=== PATIENT | female | born 1950 | race Caucasian/White ===

== ENCOUNTER 2016-12-28 13:14 | Emergency (ER) | payer MEDICAID, OTHER ==
[~2016-12-28] VITALS: Ht 149.9 cm; Wt 57.5 kg
[2016-12-28 13:27] VITALS: Ht 149.9 cm; Wt 57.5 kg
[2016-12-28] MEDS ORDERED: KETOROLAC 30 MG INJ IM STA (13:56)
--- NOTE | 2016-12-28 14:14 | ERD ---
ER Documentation Chief Complaint Date/Time DATE: 12/28/16 TIME: 14:12 Chief Complaint tripped on stairs on tuesday - pain along right side of body HPI This 66-year-old female who presents the emergency department today complaining of right arm pain, hip pain after falling down some stairs a couple of days ago. States she took Tylenol for pain yesterday with no improvement. Denies any previous trauma, fevers or chills ROS All systems reviewed and are negative except as per history of present illness. Medications Home Meds Active Scripts Naproxen* (Naprosyn*) 500 Mg Tablet, 500 MG PO BID Y for PAIN AND/OR INFLAMMATION, #30 TAB Prov:ASHKAN HERNÁNDEZ PA-C 12/28/16 Tramadol HCl (Tramadol HCl) 50 Mg Tablet, 50 MG PO Q4 Y for PAIN, #20 TAB Prov:ASHKAN HERNÁNDEZ PA-C 12/28/16 Allergies Allergies: Uncoded Allergies: PENICILLIN (Allergy, Intermediate, 12/28/16) SULFA (Allergy, Intermediate, 12/28/16) PMhx/Soc Medical and Surgical Hx: pt denies Medical Hx, pt denies Surgical Hx Hx Alcohol Use: No Hx Substance Use: No Hx Tobacco Use: No Smoking Status: Never smoker Physical Exam Vitals Vital Signs Date Time Temp Pulse Resp B/P Pulse Ox O2 Delivery O2 Flow Rate FiO2 12/28/16 13:27 98.1 50 16 129/56 100 Physical Exam Const: No acute distress Head: Atraumatic Eyes: Normal Conjunctiva ENT: Normal External Ears, Nose and Mouth. Neck: Full range of motion..~ No meningismus. Resp: Clear to auscultation bilaterally Cardio: Regular rate and rhythm, no murmurs Abd: Soft, non tender, non distended. Normal bowel sounds Skin: Ecchymosis anterior aspect bilateral knees. Ecchymosis palmar aspect right hand Back: No midline or flank tenderness mild tenderness palpation lateral aspects of both hips. Patient ambulating normally. No tenderness with compression. Ext: Right arm with no obvious deformity. Mild effusion over dorsal aspect of right hand. Ecchymosis over palmar aspect of right hand. Full active range of motion with pain. Pulses 2+. Distal neurovascularly intact Neur: Awake and alert Psych: Normal Mood and Affect Results 24 hrs Current Medications Medications (Trade) Dose Ordered Sig/Skyler Route PRN Reason Start Time Stop Time Status Last Admin Dose Admin Ketorolac Tromethamine (Toradol) 30 mg ONCE STAT IM 12/28/16 13:56 12/28/16 14:00 DC 12/28/16 14:05 DIAGNOSTIC IMAGING REPORT Patient: NABIL BECKER : 1950 Age: 66 Sex: F MR #: [id number] DOS: 12/28/16 0000 Ordering MD: ASHKAN HERNÁNDEZ PA-C Location: [facility] Room/Bed: PROCEDURE: Right hand series CLINICAL INDICATION: Right hand pain after trauma TECHNIQUE: 3 views of the right hand were obtained. COMPARISON: No prior studies are available for comparison. FINDINGS: Study is mildly limited as the there is no lateral view of the hand.. Mineralization and alignment are grossly intact. There is an age indeterminate distal fifth metacarpal fracture, likely chronic. There is no other evidence of fracture or dislocation. There are moderate degenerative changes of the first carpal metacarpal joint and mild degenerative changes of some of the distal interphalangeal joint. The soft tissues are within normal limits. IMPRESSION: 1. Age indeterminate distal fifth metacarpal fracture which may be chronic. Recommend correlation with physical exam. 2. Degenerative changes of the right hand. RPTAT: KK .Leon Amaya MD, MD Date Time Electronically viewed and signed by .Leon Amaya MD, MD on 2016 15:28 .B/ CC: ASHKAN HERNÁNDEZ PA-C DIAGNOSTIC IMAGING REPORT Patient: NABIL BECKER : 1950 Age: 66 Sex: F MR #: [id number] DOS: 12/28/16 0000 Ordering MD: ASHKAN HERNÁNDEZ PA-C Location: [facility] Room/Bed: PROCEDURE: Forearm radiograph series. CLINICAL INDICATION: Right forearm pain after trauma TECHNIQUE: AP and lateral views of the right forearm were obtained. COMPARISON: No prior studies are available for comparison. FINDINGS: There is normal mineralization and alignment of the bones of the right forearm. There is no evidence of acute fracture or dislocation. Suboptimally visualized joints appear within normal limits. The soft tissues are unremarkable. IMPRESSION: 1. Unremarkable right forearm x-ray series. RPTAT: KK .Leon Amaya MD, MD Date Time Electronically viewed and signed by .Leon Amaya MD, MD on 2016 15:29 .B/ CC: ASHKAN HERNÁNDEZ PA-C DIAGNOSTIC IMAGING REPORT Patient: NABIL BECKER : 1950 Age: 66 Sex: F MR #: [id number] DOS: 12/28/16 0000 Ordering MD: ASHKAN HERNÁNDEZ PA-C Location: [facility] Room/Bed: PROCEDURE: XR Pelvis. CLINICAL INDICATION: Pelvic pain after trauma TECHNIQUE: Single AP view of the pelvis. COMPARISON: No prior studies are available for comparison. FINDINGS: Study is slightly limited as the patient is slightly rotated which limits evaluation of the pubic rami. There is grossly normal mineralization and alignment. The femoral acetabular joints appear within normal limits. The sacroiliac joints are grossly unremarkable. The sacrum itself is suboptimally visualized due to overlying bowel gas. The soft tissues are within normal limits. IMPRESSION: 1. Limited evaluation of the pubic rami without definitive evidence of acute fracture or dislocation. RPTAT: KK .Leon Amaya MD, MD Date Time Electronically viewed and signed by .Leon Amaya MD, MD on 2016 15:30 .B/ CC: ASHKAN HERNÁNDEZ PA-C DIAGNOSTIC IMAGING REPORT Patient: NABIL BECKER : 1950 Age: 66 Sex: F MR #: [id number] DOS: 12/28/16 0000 Ordering MD: ASHKAN HERNÁNDZE PA-C Location: [facility] Room/Bed: PROCEDURE: XR Shoulder. CLINICAL INDICATION: Right shoulder pain after trauma TECHNIQUE: 2 views of the right shoulder are available for review. COMPARISON: None available FINDINGS: There is normal mineralization and alignment of the bones of the right shoulder. No acute fracture or dislocation is identified. The glenohumeral joint is within normal limits. The acromioclavicular joint is intact. The visualized portions of the right chest wall are grossly unremarkable. The soft tissues are within normal limits. IMPRESSION: 1. Unremarkable right shoulder series. RPTAT: KK .Leon Amaya MD, MD Date Time Electronically viewed and signed by .Leon Amaya MD, on 2016 15:30 .B/ CC: ASHKAN HERNÁNDEZ PA-C DIAGNOSTIC IMAGING REPORT Patient: NABIL BECEKR : 1950 Age: 66 Sex: F MR #: [id number] DOS: 12/28/16 0000 Ordering MD: ASHKAN HERNÁNDEZ PA-C Location: [facility] Room/Bed: PROCEDURE: XR Humerus. CLINICAL INDICATION: Right upper arm pain after trauma TECHNIQUE: 2 views of the right humerus were obtained. COMPARISON: No prior studies are available for comparison. FINDINGS: There is normal mineralization and alignment of the bones of the right humerus. There is no evidence of acute fracture or dislocation. The partially visualized joints appear grossly unremarkable. The soft tissues are within normal limits. IMPRESSION: 1. Unremarkable right humerus series. RPTAT: KK .Leon Amaya MD, MD Date Time Electronically viewed and signed by .Leon Amaya MD, MD on 2016 15:30 .B/ CC: ASHKAN HERNÁNDEZ PA-C Procedures/MDM This a 66-year-old female presents emergency department today complaining of multiple areas of pain after falling on some stairs 3 days ago. Patient did have some bruising and swelling over her right hand and given patient's age I did obtain images. Per the radiology report images of the right shoulder is unremarkable Images of the right humerus is unremarkable Images of the right forearm is unremarkable Images of the right hand show an age-indeterminate distal fifth metacarpal fracture which may be chronic. There is no other evidence of fracture dislocation. There are moderate degenerative changes of the first medical carpal joint and mild degenerative changes of some of the distal interphalangeal joint. Soft tissues are within normal limits. I have lower suspicion that this is a chronic injury as patient has bruising and swelling that is acute. Images of the pelvis show limited evaluation of the pubic rami without definitive evidence of acute fracture dislocation. Femoral acetabular joints appear within normal limits. SI joints are unremarkable. The sacrum itself is suboptimally visualized due to overlying bowel gas. Soft tissues are within normal limits. I do have lower suspicion that the patient has a pelvic fracture as she is walking in no acute distress. Patient was given Toradol here in the emergency department. She will be given a prescription for short course of tramadol, Naprosyn for home. Patient did indicate that she has an appointment with her primary care doctor tomorrow. I explained her that she would possibly need follow-up with orthopedic pendulous. Patient understood At this time the patient is stable for discharge and outpatient management. Patient should follow up with their PCP in the next 1-2 days. They may return to the emergency department sooner for any persistent or worsening of symptoms. Patient understood and agreed with the plan. Departure Diagnosis: Primary Impression: Fall Encounter type: initial encounter Qualified Code: W19.XXXA - Fall, initial encounter Additional Impression: Hand fracture, right Encounter type: initial encounter Fracture type: closed Qualified Code: S62.91XA - Hand fracture, right, closed, initial encounter Condition: ASHKAN Amezquita PA-C Dec 28, 2016 14:14
--- NOTE | 2016-12-28 15:28 | RADRPT ---
PROCEDURE: Right hand series CLINICAL INDICATION: Right hand pain after trauma TECHNIQUE: 3 views of the right hand were obtained. COMPARISON: No prior studies are available for comparison. FINDINGS: Study is mildly limited as the there is no lateral view of the hand.. Mineralization and alignment are grossly intact. There is an age indeterminate distal fifth metacarpal fracture, likely chronic. There is no other evidence of fracture or dislocation. There are moderate degenerative changes of the first carpal metacarpal joint and mild degenerative changes of some of the distal interphalange al joint. The soft tissues are within normal limits. IMPRESSION: 1. Age indeterminate distal fifth metacarpal fracture which may be chronic. Recommend correlation w ith physical exam. 2. Degenerative changes of the right hand. RPTAT: KK .Leon Amaya MD, Date Time Electronically viewed and signed by .Leon Amaya MD, MD on 12/28/2016 15:28 .B/
--- NOTE | 2016-12-28 15:29 | RADRPT ---
PROCEDURE: Forearm radiograph series. CLINICAL INDICATION: Right forearm pain after trauma TECHNIQUE: AP and lateral views of the right forearm were obtained. COMPARISON: No prior studies are available for comparison. FINDINGS: There is normal mineralization and alignment of the bones of the right forearm. There is no evidenc e of acute fracture or dislocation. Suboptimally visualized joints appear within normal limits. Th e soft tissues are unremarkable. IMPRESSION: 1. Unremarkable right forearm x-ray series. RPTAT: KK .Leon Amaya MD, MD Date Time Electronically viewed and signed by .Leon Amaya MD, on 12/28/2016 15:29 .B/
--- NOTE | 2016-12-28 15:30 | RADRPT ---
PROCEDURE: XR Pelvis. CLINICAL INDICATION: Pelvic pain after trauma TECHNIQUE: Single AP view of the pelvis. COMPARISON: No prior studies are available for comparison. FINDINGS: Study is slightly limited as the patient is slightly rotated which limits evaluation of the pubic ra mi. There is grossly normal mineralization and alignment. The femoral acetabular joints appear wit hin normal limits. The sacroiliac joints are grossly unremarkable. The sacrum itself is suboptimal ly visualized due to overlying bowel gas. The soft tissues are within normal limits. IMPRESSION: 1. Limited evaluation of the pubic rami without definitive evidence of acute fracture or dislocatio n. RPTAT: KK .Leon Amaya MD, Date Time Electronically viewed and signed by .Leon Amaya MD, MD on 12/28/2016 15:30 .B/
--- NOTE | 2016-12-28 15:30 | RADRPT ---
PROCEDURE: XR Shoulder. CLINICAL INDICATION: Right shoulder pain after trauma TECHNIQUE: 2 views of the right shoulder are available for review. COMPARISON: None available FINDINGS: There is normal mineralization and alignment of the bones of the right shoulder. No acute fracture or dislocation is identified. The glenohumeral joint is within normal limits. The acromioclavicular joint is intact. The visualized portions of the right chest wall are grossly unremarkable. The sof t tissues are within normal limits. IMPRESSION: 1. Unremarkable right shoulder series. RPTAT: KK .Leon Amaya MD, Date Time Electronically viewed and signed by .Leon Amaya MD, on 12/28/2016 15:30 .B/
--- NOTE | 2016-12-28 15:31 | RADRPT ---
PROCEDURE: XR Humerus. CLINICAL INDICATION: Right upper arm pain after trauma TECHNIQUE: 2 views of the right humerus were obtained. COMPARISON: No prior studies are available for comparison. FINDINGS: There is normal mineralization and alignment of the bones of the right humerus. There is no evidenc e of acute fracture or dislocation. The partially visualized joints appear grossly unremarkable. T he soft tissues are within normal limits. IMPRESSION: 1. Unremarkable right humerus series. RPTAT: KK .Leon Amaya MD, Date Time Electronically viewed and signed by .Leon Amaya MD, on 12/28/2016 15:30 .B/
[2016-12-28] MEDS ORDERED: NAPR-260 PO (15:37)
[2016-12-28] MEDS ORDERED: TRAM50TA2 PO (15:37)
== END 2016-12-28 16:02 | disposition home or self-care (01) ==
LOC: FTE 13:14
DX: S62.316A Displaced fracture of base of fifth metacarpal bone, right hand, initial encounter for closed fracture (principal); W10.9XXA Fall (on) (from) unspecified stairs and steps, initial encounter; Y92.9 Unspecified place or not applicable
CPT/HCPCS: 72170; 96372; J1885

== ENCOUNTER 2017-05-09 13:39 | Observation (INO) | payer OTHER ==
[~2017-05-09] VITALS: Ht 152.4 cm; Wt 54.0 kg
[~2017-05-09 13:39] MED LIST: NAPR-260 PO; TRAM50TA2 PO
[2017-05-09] MEDS ORDERED: NITROGLYCERIN 2% 1 GM OINT PKT TD STA (15:52)
[2017-05-09] MEDS ORDERED: ASPIRIN 325 MG TAB PO STA (15:52)
--- NOTE | 2017-05-09 15:58 | ERD ---
ER Documentation Chief Complaint Chief Complaint HIGH BLOOD PRESSURE X 1 WEEK.CP TODAY NON RADIATING HPI This is a 66-year-old female. A geospatial image analyst was used. The patient describes chest pain. She states a history of hypertension hyperlipidemia. She states for 1 week she has been having chest pain and chest pressure with uncontrolled blood pressure. She has been compliant with her medications. She is describing any chest pain as pressure-like with associated nausea and diaphoresis. She states that walking around makes it actually better and helps her stop thinking about it. She states that when she is sitting still she starts to get anxious. She does note increased anxiety. She has never had a stress test before. She denies any headache or vision changes. She took an extra dose of her blood pressure medication today before arrival. She is currently having 4-10 chest pain. ROS All systems reviewed and are negative except as per history of present illness. Medications Home Meds Reported Medications Acetaminophen* (Tylenol*) 500 Mg Tab, 1000 MG PO Q6H Y for PAIN AND OR ELEVATED TEMP, TAB 05/09/17 Atorvastatin* (Atorvastatin*) 40 Mg Tablet, 40 MG PO QHS, #30 TAB 05/09/17 Metoprolol Succinate* (Toprol XL*) 50 Mg Tab.er.24h, 50 MG PO DAILY, #30 TAB 05/09/17 Discontinued Scripts Naproxen* (Naprosyn*) 500 Mg Tablet, 500 MG PO BID Y for PAIN AND/OR INFLAMMATION, #30 TAB Prov:ASHKAN HERNÁNDEZ PA-C 12/28/16 Tramadol HCl (Tramadol HCl) 50 Mg Tablet, 50 MG PO Q4 Y for PAIN, #20 TAB Prov:ASHKAN HERNÁNDEZ PA-C 12/28/16 Allergies Allergies: Coded Allergies: Penicillins (Unverified Allergy, Unknown, 05/09/17) Sulfa (Sulfonamide Antibiotics) (Unverified Allergy, Unknown, 05/09/17) PMhx/Soc Hypertension and hyperlipidemia Hx Alcohol Use: No Hx Substance Use: No Hx Tobacco Use: No FmHx Family History: diabetes Physical Exam Vitals Vital Signs Date Time Temp Pulse Resp B/P Pulse Ox O2 Delivery O2 Flow Rate FiO2 05/09/17 15:45 98.5 68 18 130/62 100 Room Air 05/09/17 13:41 98.5 85 18 169/70 100 Physical Exam General: Well developed, well nourished, no acute distress Head: Normocephalic, atraumatic. Eyes: Pupils equally reactive, EOM intact ENT: Moist mucous membranes Neck: Supple, no lymphadenopathy Respiratory: Lungs clear bilaterally, no distress Cardiovascular: RRR, no murmurs, rubs, or gallops Abdominal: Soft, non-tender, non-distended, no peritoneal signs : Deferred MSK: No edema, no unilateral swelling, 5/5 strength Neurologic: Alert and oriented, moving all extremities, normal speech, no focal weakness, no cerebellar signs Skin: No rash Psych: Anxious Result Diagram: 05/09/17 1600 05/09/17 1600 Results 24 hrs Laboratory Tests Test 05/09/17 16:00 White Blood Count 6.810^3/ul Red Blood Count 4.5010^6/ul Hemoglobin 13.7g/dl Hematocrit 41.2% Mean Corpuscular Volume 91.6fl Mean Corpuscular Hemoglobin 30.4pg Mean Corpuscular Hemoglobin Concent 33.3g/dl Red Cell Distribution Width 15.4% Platelet Count 51453^3/UL Mean Platelet Volume 11.8fl Neutrophils % 50.7% Lymphocytes % 34.7% Monocytes % 7.0% Eosinophils % 7.3% Basophils % 0.3% Nucleated Red Blood Cells % 0.0/100WBC Neutrophils # 3.510^3/ul Lymphocytes # 2.410^3/ul Monocytes # 0.510^3/ul Eosinophils # 0.510^3/ul Basophils # 0.010^3/ul Nucleated Red Blood Cells # 0.010^3/ul Sodium Level 142mmol/L Potassium Level 4.2mmol/L Chloride Level 104mmol/L Carbon Dioxide Level 28mmol/L Anion Gap 14 Blood Urea Nitrogen 16mg/dl Creatinine 0.69mg/dl Glucose Level 117mg/dl Calcium Level 9.9mg/dl Troponin I < 0.012ng/ml Current Medications Medications (Trade) Dose Ordered Sig/Skyler Route PRN Reason Start Time Stop Time Status Last Admin Dose Admin Aspirin (Aspirin) 325 mg ONCE STAT PO 05/09/17 15:52 05/09/17 15:53 DC 05/09/17 16:27 Nitroglycerin (Nitroglycerin 2% Oint) 1 inch ONCE STAT TD 05/09/17 15:52 05/09/17 15:53 DC 05/09/17 16:27 Lorazepam (Ativan) 0.5 mg ONCE ONCE IV 05/09/17 16:00 05/09/17 16:01 DC 05/09/17 16:27 Procedures/MDM EKG, MONITORS, & DIAGNOSTIC IMAGING: EKG: I reviewed and interpreted a 12-lead EKG. Rhythm: Normal sinus rhythm Ectopy: None Intervals: No abnormalities ST segments: No elevations or depressions T waves: No contiguous inversions Repeat EKG: EKG: I reviewed and interpreted a 12-lead EKG. Rhythm: Normal sinus rhythm Ectopy: None Intervals: No abnormalities ST segments: No elevations or depressions T waves: No contiguous inversions Chest x-ray: I reviewed and interpreted a 1 view of the chest Mediastinum: No enlargement Cardiac silhouette: No cardiomegaly Airspace: Clear lung melendez bilaterally without evidence of pneumothorax Bones: No evidence of fracture LAB INTERPRETATION: Troponin MEDICAL DECISION MAKING: The patient's history, physical exam and clinical presentation is concerning for possible cardiogenic etiology and acute coronary syndrome. However, there is a strong element of anxiety with this patient and additionally she has improved symptoms with exertion. However, she is a 66-year-old with prior risk stratification. I believe a workup would be appropriate to rule out ACS. No headache or evidence of intracranial hemorrhage. Blood pressure well controlled. No indication for CT brain. Based on the patient's clinical exam and history and risk factors, I have a much lower clinical concern for pulmonary embolism, acute aortic dissection, pneumothorax, pneumonia, cardiac tamponade HEART Score: 3 MACE Rate: 1.7% Shared Decision Making: We had a conversation regarding risk stratification, MACE rate, and the risks, benefits, alternatives of disposition planning options. Disposition planning: Given that the patient has had no prior risk stratification I strongly recommend hospitalization. Patient agreeable. ER COURSE: Aspirin, nitroglycerin, Ativan provided. The patient is chest pain-free. It appears over the patient's course in the emergency department she reported to the nurse that she may be suicidal. She is describing increased depression and suicidal ideation with cutting herself. She also describes a plan to jump in front of traffic. A sitter was ordered for the patient. An alcohol and drug screen was ordered. The patient cannot be medically cleared given her chest pain. She will require admission, consider an inpatient psychiatric evaluation once cleared from a chest pain standpoint. I kept the patient and/or family informed of laboratory and diagnostic imaging results throughout the emergency room course. DISPOSITION PLAN: Telemetry admission for management of chest pain to rule out acute coronary syndrome, serial enzymes, risk stratification and consideration of provocative testing CONSULTATION: Accepting care team and consultations: I discussed the current laboratory data, diagnostic imaging and emergency care provided. Admitting team: Dr Henriquez Admitting team indication: Insurance directed Departure Diagnosis: Primary Impression: Chest pain Chest pain type: unspecified Qualified Code: R07.9 - Chest pain, unspecified type Additional Impressions: Anxiety reaction Suicidal ideation Condition: Stable OK TORRES MD May 09, 2017 15:58
[2017-05-09] MEDS ORDERED: LORAZEPAM 2 MG INJ IV ONE (16:00)
--- NOTE | 2017-05-09 16:21 | RADRPT ---
PROCEDURE: XR Chest. CLINICAL INDICATION: Chest pain. TECHNIQUE: Single frontal view. COMPARISON: None. FINDINGS: The lungs are clear. The heart size is normal. There is no pleural effusion. There is no pneumothorax. IMPRESSION: 1. Normal chest radiograph. RPTAT: QQ .Jesus Myers MD, Date Time Electronically viewed and signed by .Jesus Myers MD, on 05/09/2017 16:20 .R/
[2017-05-09] MEDS ORDERED: TYL500 PO (16:23)
[2017-05-09] MEDS ORDERED: ATOR40TA68 PO (16:23)
[2017-05-09] MEDS ORDERED: METO-319 PO (16:23)
[2017-05-09 16:30] LABS: BASOPHILS % 0.3 % (0.0-2.0); EOSINOPHILS # 0.5 10^3/ul (0.0-0.5); EOSINOPHILS % 7.3 % (0.0-7.0); HEMATOCRIT 41.2 % (37.0-47.0); HEMOGLOBIN 13.7 g/dl (12.0-16.0); LYMPHOCYTES # 2.4 10^3/ul (0.8-2.9); LYMPHOCYTES % 34.7 % (15.0-51.0); MEAN CORPUSCULAR HEMOGLOBIN 30.4 pg (29.0-33.0); MEAN CORPUSCULAR HGB CONC 33.3 g/dl (32.0-37.0); MEAN CORPUSCULAR VOLUME 91.6 fl (82.0-101.0); MEAN PLATELET VOLUME 11.8 fl (7.4-10.4); MONOCYTE # 0.5 10^3/ul (0.3-0.9); NEUTROPHIL # 3.5 10^3/ul (1.6-7.5); NEUTROPHILS % 50.7 % (39.0-77.0); PLATELET COUNT 158 10^3/UL (140-415); RED CELL DISTRIBUTION WIDTH 15.4 % (11.5-14.5); WHITE BLOOD COUNT 6.8 10^3/ul (4.8-10.8)
[2017-05-09 16:56] LABS: ANION GAP 14 (8-16); BLOOD UREA NITROGEN 16 mg/dl (7-20); CALCIUM 9.9 mg/dl (8.4-10.2); CARBON DIOXIDE 28 mmol/L (21-31); CHLORIDE 104 mmol/L (97-110); CREATININE 0.69 mg/dl (0.44-1.00); GLUCOSE 117 mg/dl (70-220); POTASSIUM 4.2 mmol/L (3.5-5.1); SODIUM 142 mmol/L (135-144)
[2017-05-09 17:11] LABS: TROPONIN-I < 0.012 ng/ml (0.00-0.12)
[2017-05-09] MEDS ORDERED: ACETAMINOPHEN 325 MG TAB PO PRN (17:30)
[2017-05-09] MEDS ORDERED: ONDANSETRON 4 MG INJ IV PRN (17:30)
[2017-05-09 17:59] VITALS: TEMP 98.2
[2017-05-09] MEDS ORDERED: morphine 4 MG/ML VIAL IV STA (18:12)
[2017-05-09 20:10] VITALS: Ht 152.4 cm; Wt 54.0 kg
[2017-05-09 20:28] VITALS: BP 167/72; RESP 16
[2017-05-09 20:36] VITALS: PULSE 66
[2017-05-09 20:50] LABS: BARBITURATES Negative (NEGATIVE); BENZODIAZEPINES Negative (NEGATIVE); CANNABINOIDS Negative (NEGATIVE); COCAINE Negative (NEGATIVE); OPIATES Positive (NEGATIVE)
[2017-05-09] MEDS ORDERED: QUETIAPINE 25 MG TAB PO SCH (21:00)
[2017-05-09] MEDS ORDERED: DIPHENHYDRAMINE 25 MG CAP PO PRN (21:30)
[2017-05-09] MEDS ORDERED: morphine 4 MG/ML VIAL IV PRN (21:30)
[2017-05-09 22:35] LABS: CREATINE KINASE 53 IU/L (23-200)
[2017-05-09 22:46] LABS: CK-MB 0.35 ng/ml (0.0-2.4)
[2017-05-09 22:47] LABS: TROPONIN-I < 0.012 ng/ml (0.00-0.12)
[2017-05-10] VITALS (11 sets, daily range): BP systolic 114–151; BP diastolic 58–79; PULSE 48–69; RESP 18–19
[2017-05-10] MEDS ORDERED: hydrALAzine 20 MG INJ IV PRN (00:30)
[2017-05-10] MEDS ORDERED: NITROGLYCERIN (SL) 0.4 MG TAB SL PRN (00:30)
[2017-05-10] MEDS ORDERED: morphine 2 MG INJ IV PRN ×3 (00:30→16:30)
[2017-05-10] MEDS ORDERED: ONDANSETRON 4 MG INJ IV PRN (00:30)
[2017-05-10] MEDS ORDERED: LORAZEPAM 0.5 MG TAB PO PRN (00:30)
[2017-05-10] MEDS ORDERED: NACL 0.9% 3 ML SYG IV SCH (00:30)
[2017-05-10] MEDS ORDERED: ALBUTEROL/IPRATROPIUM (NEB) 3 ML AMP HHN PRN (00:30)
[2017-05-10 04:07] LABS: BASOPHILS % 0.4 % (0.0-2.0); CREATINE KINASE 40 IU/L (23-200); EOSINOPHILS # 0.4 10^3/ul (0.0-0.5); EOSINOPHILS % 7.4 % (0.0-7.0); HEMATOCRIT 35.9 % (37.0-47.0); HEMOGLOBIN 12.5 g/dl (12.0-16.0); LYMPHOCYTES # 1.6 10^3/ul (0.8-2.9); LYMPHOCYTES % 29.8 % (15.0-51.0); MEAN CORPUSCULAR HEMOGLOBIN 31.6 pg (29.0-33.0); MEAN CORPUSCULAR HGB CONC 34.8 g/dl (32.0-37.0); MEAN CORPUSCULAR VOLUME 90.9 fl (82.0-101.0); MONOCYTE # 0.4 10^3/ul (0.3-0.9); MONOCYTES % 6.4 % (0.0-11.0); NEUTROPHIL # 3.1 10^3/ul (1.6-7.5); NEUTROPHILS % 55.8 % (39.0-77.0); PLATELET COUNT 120 10^3/UL (140-415); RED BLOOD COUNT 3.95 10^6/ul (4.20-5.40); RED CELL DISTRIBUTION WIDTH 15.4 % (11.5-14.5); WHITE BLOOD COUNT 5.5 10^3/ul (4.8-10.8)
[2017-05-10 04:10] LABS: ALBUMIN 3.6 g/dl (3.3-4.9); ALBUMIN/GLOBULIN RATIO 1.24; BILIRUBIN,INDIRECT 0.5 mg/dl (0-1.1); BILIRUBIN,TOTAL 0.5 mg/dl (0.2-1.3); CALCIUM 9.2 mg/dl (8.4-10.2); CREATININE 0.64 mg/dl (0.44-1.00); POTASSIUM 3.9 mmol/L (3.5-5.1); TOTAL PROTEIN 6.5 g/dl (6.1-8.1)
[2017-05-10 04:20] LABS: CK-MB 0.37 ng/ml (0.0-2.4)
[2017-05-10 04:28] LABS: TROPONIN-I < 0.012 ng/ml (0.00-0.12)
[2017-05-10] MEDS: ACETAMINOPHEN 325 MG TAB PO PRN ×2 (08:33→15:29)
[2017-05-10] MEDS ORDERED: ENOXAPARIN 40 MG/0.4 ML SYG SC SCH (09:00)
[2017-05-10] MEDS ORDERED: ASPIRIN 81 MG TAB PO SCH (09:00)
[2017-05-10] MEDS ORDERED: METOPROLOL (XL) 50 MG TAB PO SCH (09:00)
--- NOTE | 2017-05-10 10:13 | HP ---
Date/Time of Note Date/Time of Note DATE: 05/10/17 TIME: 10:07 Assessment/Plan Lines/Catheters IV Catheter Type (from Nrs): Saline Lock Urinary Cath still in place: No Assessment/Plan Assessment/Plan 1. Suicidal ideation -1:1 sitter -Tele-psychiatry evaluation -will start Seroquel 2. Chest pain, likely noncardiac secondary to anxiety/stress -Will however need to rule out ACS and as such continue telemetry monitoring, trend troponin -Supplemental oxygen, aspirin, beta-brenda -Check A1c, fasting lipid and TSH in a.m. -2D echo -Cardiology consult as needed 3. History of hypertension Continue antihypertensives adjustment as needed 4. Elevated transaminases -Right upper quadrant ultrasound -Check hepatitis panel -Hold outpatient statin HPI/ROS Admit Date/Time Admit Date/Time May 09, 2017 at 17:25 Hx of Present Illness This is a 66-year-old female with a history of hypertension, dyslipidemia, anxiety/depression and remote history of suicide attempt who presented to the ER complaining of chest pain. Pain is diffuse but mainly localized in the center with no radiation. She reported occasional associated shortness of breath. Denied nausea/vomiting but reported occasional diaphoresis. Denied a history of coronary artery disease. While patient was in the ER, she expressed thoughts of suicide by slashing her wrists or jumping in front of a bus. There is a remote history of suicide attempts by cutting her wrists. Patient expressed feeling lonely. PMH/Family/Social Social History Smoking Status: Never smoker Exam/Review of Systems Vital Signs Vitals Vital Signs Date Time Temp Pulse Resp B/P Pulse Ox O2 Delivery O2 Flow Rate FiO2 05/10/17 08:00 69 05/10/17 07:42 98.1 19 151/79 98 05/09/17 19:59 Room Air Intake and Output 05/09/17 05/09/17 05/10/17 14:59 22:59 06:59 Intake Total 200 ml Balance 200 ml Labs Result Diagram: 05/10/17 0333 05/10/17 0333 Medications Medications Current Medications Diphenhydramine HCl (Benadryl) 25 mg Q6H PRN PO ITCHING Last administered on t 23:10; Admin Dose 25 MG; Start 05/09/17 at 21:30 Morphine Sulfate (morphine) 4 mg Q4H PRN IV PAIN; Start 05/09/17 at 21:30 Quetiapine Fumarate (Seroquel) 25 mg HS PO Last administered on 05/09/17 23:10 ; Admin Dose 25 MG; Start 05/09/17 at 21:00 Lorazepam (Ativan) 0.5 mg Q8H PRN PO ANXIETY; Start 05/10/17 at 00:30 Ondansetron HCl (Zofran Inj) 4 mg Q6H PRN IV NAUSEA AND/OR VOMITING; Start 05/10/17 at 00:30 Aspirin (Aspirin) 81 mg DAILY PO Last administered on 05/10/17 08:33; Admin Dose 81 MG; Start 05/10/17 at 09:00 Nitroglycerin (Nitroglycerin (Sl Tab) 0.4 Mg) 1 tab Q5M PRN SL CHEST PAIN; Start 05/10/17 at 00:30 Acetaminophen (Tylenol Tab) 650 mg Q6H PRN PO PAIN LEVEL 1-3 OR FEVER Last administered on 05/10/17 08:33; Admin Dose 650 MG; Start 05/10/17 at 00:30 Morphine Sulfate (morphine) 2 mg Q4H PRN IV PAIN LEVEL 7-10; Start 05/10/17 at 00:30 Enoxaparin Sodium (Lovenox) 40 mg DAILY SC Last administered on 05/10/17 08:42 ; Admin Dose 40 MG; Start 05/10/17 at 09:00 Atorvastatin Calcium (Lipitor) 40 mg QHS PO ; Start 05/10/17 at 21:00 Metoprolol Succinate (Toprol Xl) 50 mg DAILY PO Last administered on 05/10/17 08:33; Admin Dose 50 MG; Start 05/10/17 at 09:00 Hydralazine HCl (Apresoline) 10 mg Q4H PRN IV SBP > 160; Start 05/10/17 at 00: 30 TOBI SMITH MD May 10, 2017 10:13
[2017-05-10] MEDS ORDERED: FAMOTIDINE 20 MG TAB PO SCH (12:00)
--- NOTE | 2017-05-10 15:00 | RADRPT ---
PROCEDURE: US Abdomen (right upper quadrant). CLINICAL INDICATION: Elevated liver function tests. TECHNIQUE: Multiple real-time longitudinal and transverse images of the right upper quadrant of th e abdomen were acquired utilizing a curved array transducer. Images were reviewed on a high-resoluti on PACS workstation. COMPARISON: None FINDINGS: The liver is normal in size and normal in echogenicity. There is no focal hepatic lesion. Color Doppler and pulsed Doppler sonography demonstrate normal a ntegrade flow in the portal vein. The gallbladder is normal with no stones or wall thickening. There is no pericholecystic fluid [place] ection. The bile ducts are normal with the common bile duct measuring 4.2 mm in diameter. The visualized portions of the pancreas are unremarkable with obscuration of the tail of the pancrea s. No free fluid is present. The right kidney measures 10.8 cm. There is normal echogenicity of the right kidney. There is no perinephric fluid collection. No hydronephrosis, mass, or calculus is seen. IMPRESSION: 1. Unremarkable right upper quadrant abdomen ultrasound. RPTAT: QQ .Jesus Myers MD, MD Date Time Electronically viewed and signed by .Jesus Myers MD, on 05/10/2017 15:00 .R/
--- NOTE | 2017-05-10 15:15 | RADRPT ---
Echocardiogram Report Patient Name: NABIL BECKER Gender: Female Date: 1950 Study Date: 10-May-2017 [employer] Agent: [facility] Location: 5548-A Ref. Physician: TOBI SMITH Quality: Adequate Procedures: Transthoracic echocardiogram with complete 2D, M-Mode, and doppler examination. Indications: Chest Pain. 2D/M Mode Doppler Measurement Value Normal Ranges Measurement Value Normal Ranges LVIDd 2D 3.9 3.5 - 5.6 cm AV Peak Terell 1.0 m/sec LVIDs 2D 2.5 2.1 - 4.1 cm AV Peak PG 4.0 mmHg LVPWd 2D 1.1 0.6 - 1.1 cm AI Peak PG 71.2 mmHg IVSd 2D 1.1 0.6 - 1.1 cm AI Peak Terell 4.2 m/sec AoR Diam 2D 2.4 2.0 - 3.7 cm AI PHT 743.1 msec EDV 2D 67.5 cm3 LVOT Peak Terell 1.0 m/sec ESV 2D 16.2 cm3 LVOT Peak PG 3.6 mmHg LA Dimen 2D 2.9 2.3 - 4.0 cm MV E Peak Terell 0.9 m/sec MV A Peak Terell 0.8 m/sec MV E/A 1.2 MV Decel Time 176 msec MV Decel [place] 5 MV E/A 1.2 TR Peak Terell 3.4 m/sec TR Peak PG 46.0 mmHg RVSP 49.0 mmHg Findings Left Ventricle: Normal left ventricular systolic function. Normal left ventricular cavity size. Left ventricular wall thickness upper limits of normal. Ejection fraction is visually estimated at 6065 %. Tissue Doppler/Mitral Doppler indices are within normal limits. Right Ventricle: Normal right ventricular size. Normal right ventricular systolic function. Left Atrium: The left atrium is normal in size. Right Atrium: The right atrium is normal in size. Mitral Valve: Mild mitral leaflet calcification. Mild mitral annular calcification. Mild mitral valve regurgitation. Aortic Valve: No significant aortic stenosis. Aortic cusps appear mildly calcified. Mild aortic valve regurgitation. Tricuspid Valve: Normal appearance of the tricuspid valve. Estimated peak PA systolic pressure 46 mmHg. There is mild to moderate tricuspid regurgitation. Pulmonic Valve: Pulmonic valve not well visualized. There is trace pulmonic regurgitation. Pericardium: Normal pericardium with no significant pericardial effusion. Aorta: Normal aortic root. IVC: Normal size and normal respiratory collapse consistent with normal right atrial pressure. Conclusions 1.The left ventricle is normal in size and systolic function. 2.Estimated left ventricular ejection fraction of 60-65%. 3.Estimated RVSP of 46 mmHg. Electronically Signed By: Norm Vargas 10-May-2017 15:14:33 -0800 Patient Name: NABIL BECKER Study Date: 10-May-[id number]
--- NOTE | 2017-05-10 15:48 | PSY ---
Date/Time of Note Date/Time of Note DATE: 05/10/17 TIME: 15:41 Psychiatric Subjective Eval Consent Pt consented to telemedicine: Yes Subjective Evaluation Patient location: inpatient Chief Complaint: HIGH BLOOD PRESSURE X 1 WEEK.CP TODAY NON RADIATING Reason for consult: depression History of present illness Translated by ney . 66/f, " I had a lot of head pain when I get pain I get confused. I fel like running so I get hit by something and , they are giving me some med in vein ( morphine as per Dr escalera) , which has controlled the pain , so I am fine, i do not feel confused. I do not want to kill myself" She has a h x of depression, took antidperessant in [place], not taking them since 11/20. She stated " They give me antidepressants" She is not telling me why she quit. She lives with her kids babs=corin and a son. Wants to go back. Does not have any suicidal thoughts now she stated. she wants to live Past psychiatric history depression denies any suicide attempt before, she stated whenever she gets pain she gets that way not otherwise. Nopsych admission. all hx from her. Family History denies spcyhs hx Medical history Problems Medical Problems: (1) Anxiety reaction Status: Acute (2) Chest pain Status: Acute (3) Fall Status: Acute (4) Hand fracture, right Status: Acute (5) Suicidal ideation Status: Acute Allergies: Coded Allergies: Penicillins (Unverified Allergy, Unknown, 05/09/17) Sulfa (Sulfonamide Antibiotics) (Unverified Allergy, Unknown, 05/09/17) Substance Abuse Substance use: other (she denies ) Social History Marital status: single (for 30 yrs ) Psychiatric Objective Eval Review of Systems: Review of Systems: Not Applicable Physical Examination: Physical Examination: Not Applicable Mental Status Examination: Appearance: Groomed Eye Contact: Good Psychomotor Activity: Normal Behavior: Cooperative Speech: Clear AFFECT: Appropriate Mood: Appropriate/Full Though Process: Linear Thought Content: Normal Suicidal: No Homicidal: No Orientation: x4 Cognition: Alert Insight: Intact Judgement: Intact Attention Span: Intact Laboratory Results Laboratory Tests Test 05/09/17 16:00 05/09/17 20:00 05/09/17 22:00 05/10/17 03:33 White Blood Count 6.810^3/ul 5.510^3/ul Red Blood Count 4.5010^6/ul 3.9510^6/ul Hemoglobin 13.7g/dl 12.5g/dl Hematocrit 41.2% 35.9% Mean Corpuscular Volume 91.6fl 90.9fl Mean Corpuscular Hemoglobin 30.4pg 31.6pg Mean Corpuscular Hemoglobin Concent 33.3g/dl 34.8g/dl Red Cell Distribution Width 15.4% 15.4% Platelet Count 99642^3/UL 15726^3/UL Mean Platelet Volume 11.8fl 12.0fl Neutrophils % 50.7% 55.8% Lymphocytes % 34.7% 29.8% Monocytes % 7.0% 6.4% Eosinophils % 7.3% 7.4% Basophils % 0.3% 0.4% Nucleated Red Blood Cells % 0.0/100WBC 0.0/100WBC Neutrophils # 3.510^3/ul 3.110^3/ul Lymphocytes # 2.410^3/ul 1.610^3/ul Monocytes # 0.510^3/ul 0.410^3/ul Eosinophils # 0.510^3/ul 0.410^3/ul Basophils # 0.010^3/ul 0.010^3/ul Nucleated Red Blood Cells # 0.010^3/ul 0.010^3/ul Sodium Level 142mmol/L 141mmol/L Potassium Level 4.2mmol/L 3.9mmol/L Chloride Level 104mmol/L 108mmol/L Carbon Dioxide Level 28mmol/L 26mmol/L Anion Gap 14 11 Blood Urea Nitrogen 16mg/dl 14mg/dl Creatinine 0.69mg/dl 0.64mg/dl Glucose Level 117mg/dl 99mg/dl Calcium Level 9.9mg/dl 9.2mg/dl Troponin I < 0.012ng/ml < 0.012ng/ml < 0.012ng/ml Ethyl Alcohol Level < 10.0mg/dl Urine Opiates Screen Positive Urine Barbiturates Negative Urine Amphetamines Screen Negative Urine Benzodiazepines Screen Negative Urine Cocaine Screen Negative Urine Cannabinoids Negative Creatine Kinase 53IU/L 40IU/L Creatine Kinase Index 0.7 0.9 Creatinine Kinase MB (Mass) 0.35ng/ml 0.37ng/ml Hemoglobin A1c 5.9% Magnesium Level 2.0mg/dl Total Bilirubin 0.5mg/dl Direct Bilirubin 0.00mg/dl Indirect Bilirubin 0.5mg/dl Aspartate Amino Transf (AST/SGOT) 138IU/L Alanine Aminotransferase (ALT/SGPT) 184IU/L Alkaline Phosphatase 389IU/L Total Protein 6.5g/dl Albumin 3.6g/dl Globulin 2.90g/dl Albumin/Globulin Ratio 1.24 Test 05/10/17 11:10 Hepatitis B Surface Antigen NEGATIVE Hepatitis B Surface Antibody NEGATIVE Hepatitis C Antibody NEGATIVE Assessment and Plan Assessment/Diagnosis [place] I: major depressive disorder r/o narc or pain killer abuse [place] II: deferred [place] III: none [place] IV: none [place] V: 70 Recommendation/Plan Medication Management Neurontin 300mg HS for pain and anxiety Paxil 20mg in PM Psychotherapy counseling Pt. Caregiver/Family Education d/c home with family since she has denied SI, HI see HPI Follow-up/Disposition f/u pcp, psychiatrist Avoid narcs, morphine similar for pain unless SC or angina. Use NSAIDS for musculoskeletal pain or beingn headaches 5150 Recommendation: Release Hold (id on hold you can release it discussed with Dr escalera) SUDHAKAR LANDRUM MD May 10, 2017 15:48
--- NOTE | 2017-05-10 16:05 | PDOCDIS ---
Discharge Instructions CONDITION Patient Condition: Stable HOME CARE INSTRUCTIONS: Diet Instructions: Low Fat /Cholesterol ACTIVITY: Activity Restrictions: Slowly Increase Activity FOLLOW UP/APPOINTMENTS Follow-up Plan Please take your medications as prescribed. Please follow-up with her regular doctor in the clinic in the next 1 week. MARA DÍAZ May 10, 2017 16:05
[2017-05-10] MEDS ORDERED: PARO20TA58 PO (16:07)
[2017-05-10] MEDS ORDERED: GABA300C PO (16:08)
--- NOTE | 2017-05-10 16:25 | DS ---
Date/Time of Note Date/Time of Note DATE: 05/10/17 TIME: 16:21 Discharge Summary Admission/Discharge Info Admit Date/Time May 09, 2017 at 17:25 Discharge Date/Time Discharge Diagnosis 1. Suicidal ideation - Resolved now -Tele-psychiatry evaluation 2. Chest pain, likely noncardiac secondary to anxiety/stress Ruled out for acute coronary syndrome 3. History of hypertension Continue antihypertensives adjustment as needed 4. Elevated transaminases -Right upper quadrant ultrasound Perform nondiagnostic Patient Condition: Stable Hospital Course 66-year-old female with a history of hypertension, dyslipidemia, anxiety/ depression and remote history of suicide attempt who presented to the ER complaining of chest pain. Pain is diffuse but mainly localized in the center with no radiation. She reported occasional associated shortness of breath. Denied nausea/vomiting but reported occasional diaphoresis. Denied a history of coronary artery disease. While patient was in the ER, she expressed thoughts of suicide by slashing her wrists or jumping in front of a bus. There is a remote history of suicide attempts by cutting her wrists. Patient expressed feeling lonely. Patient was admitted, ruled out for acute coronary syndrome. 2D echocardiogram showed the following results: Conclusions 1. The left ventricle is normal in size and systolic function. 2. Estimated left ventricular ejection fraction of 60-65%. 3. Estimated RVSP of 46 mmHg. Patient's chest pain symptoms improved, she was able to ambulate, tolerate a p.o. diet. She was evaluated by the telemetry psychiatrist who recommended Paxil and Neurontin medications to help treat her anxiety depression, but did not feel the patient was actively at risk for suicide or suicide ideation. She will be discharged home today in improved condition, needs close follow-up with her primary care doctor and possibly sent to services to follow-up with her regular psychologist and psychiatrist. See below for full list of discharge medications. Her gallbladder ultrasound this admission was also nondiagnostic. Home Meds Active Scripts Gabapentin* (Neurontin*) 300 Mg Capsule, 300 MG PO QHS, #30 CAP 4 Refills Prov:MARA DÍAZ S. 05/10/17 Paroxetine Hcl* (Paxil*) 20 Mg Tablet, 20 MG PO HS, #30 TAB 4 Refills Prov:MARA DÍAZ S. 05/10/17 Reported Medications Acetaminophen* (Tylenol*) 500 Mg Tab, 1000 MG PO Q6H Y for PAIN AND OR ELEVATED TEMP, TAB 05/09/17 Atorvastatin* (Atorvastatin*) 40 Mg Tablet, 40 MG PO QHS, #30 TAB 05/09/17 Metoprolol Succinate* (Toprol XL*) 50 Mg Tab.er.24h, 50 MG PO DAILY, #30 TAB 05/09/17 Discontinued Scripts Naproxen* (Naprosyn*) 500 Mg Tablet, 500 MG PO BID Y for PAIN AND/OR INFLAMMATION, #30 TAB Prov:ASHKAN HERNÁNDEZ PA-C 12/28/16 Tramadol HCl (Tramadol HCl) 50 Mg Tablet, 50 MG PO Q4 Y for PAIN, #20 TAB Prov:ASHKAN HERNÁNDEZ PA-C 12/28/16 Follow-up Plan Please take your medications as prescribed. Please follow-up with her regular doctor in the clinic in the next 1 week. Primary Care Provider [facility] Time spent on discharge: > 30 minutes Pending Labs Laboratory Tests Test 05/09/17 20:00 05/09/17 22:00 05/10/17 03:33 05/10/17 11:10 Urine Opiates Screen Positive (NEGATIVE) Urine Barbiturates Negative (NEGATIVE) Urine Amphetamines Screen Negative (NEGATIVE) Urine Benzodiazepines Screen Negative (NEGATIVE) Urine Cocaine Screen Negative (NEGATIVE) Urine Cannabinoids Negative (NEGATIVE) Creatine Kinase 53IU/L (23-200) 40IU/L (23-200) Creatine Kinase Index 0.7 0.9 Creatinine Kinase MB (Mass) 0.35ng/ml (0.0-2.4) 0.37ng/ml (0.0-2.4) Troponin I < 0.012ng/ml (0.00-0.12) < 0.012ng/ml (0.00-0.12) White Blood Count 5.510^3/ul (4.8-10.8) Red Blood Count 3.9510^6/ul (4.20-5.40) Hemoglobin 12.5g/dl (12.0-16.0) Hematocrit 35.9% (37.0-47.0) Mean Corpuscular Volume 90.9fl (82.0-101.0) Mean Corpuscular Hemoglobin 31.6pg (29.0-33.0) Mean Corpuscular Hemoglobin Concent 34.8g/dl (32.0-37.0) Red Cell Distribution Width 15.4% (11.5-14.5) Platelet Count 16984^3/UL (140-415) Mean Platelet Volume 12.0fl (7.4-10.4) Neutrophils % 55.8% (39.0-77.0) Lymphocytes % 29.8% (15.0-51.0) Monocytes % 6.4% (0.0-11.0) Eosinophils % 7.4% (0.0-7.0) Basophils % 0.4% (0.0-2.0) Nucleated Red Blood Cells % 0.0/100WBC (0.0-0.0) Neutrophils # 3.110^3/ul (1.6-7.5) Lymphocytes # 1.610^3/ul (0.8-2.9) Monocytes # 0.410^3/ul (0.3-0.9) Eosinophils # 0.410^3/ul (0.0-0.5) Basophils # 0.010^3/ul (0.0-0.1) Nucleated Red Blood Cells # 0.010^3/ul (0.0-0.0) Sodium Level 141mmol/L (135-144) Potassium Level 3.9mmol/L (3.5-5.1) Chloride Level 108mmol/L (97-110) Carbon Dioxide Level 26mmol/L (21-31) Anion Gap 11 (8-16) Blood Urea Nitrogen 14mg/dl (7-20) Creatinine 0.64mg/dl (0.44-1.00) Glucose Level 99mg/dl (70-220) Hemoglobin A1c 5.9% (0-5.9) Calcium Level 9.2mg/dl (8.4-10.2) Magnesium Level 2.0mg/dl (1.7-2.5) Total Bilirubin 0.5mg/dl (0.2-1.3) Direct Bilirubin 0.00mg/dl (0.00-0.20) Indirect Bilirubin 0.5mg/dl (0-1.1) Aspartate Amino Transf (AST/SGOT) 138IU/L (15-46) Alanine Aminotransferase (ALT/SGPT) 184IU/L (13-69) Alkaline Phosphatase 389IU/L (42-121) Total Protein 6.5g/dl (6.1-8.1) Albumin 3.6g/dl (3.3-4.9) Globulin 2.90g/dl (1.3-3.2) Albumin/Globulin Ratio 1.24 Hepatitis B Surface Antigen NEGATIVE (NEGATIVE) Hepatitis B Surface Antibody NEGATIVE (NEGATIVE) Hepatitis C Antibody NEGATIVE (NEGATIVE) MARA DÍAZ May 10, 2017 16:25
[2017-05-10] MEDS ORDERED: QUETIAPINE 25 MG TAB PO SCH (21:00)
[2017-05-10] MEDS ORDERED: ATORVASTATIN 40 MG TAB PO SCH (21:00)
--- NOTE | 2017-05-11 10:49 | PN ---
DATE:05/11/2017 SUBJECTIVE: The patient denies any chest pain, troponins have been negative x3. Awaiting tele psychiatry evaluation. OBJECTIVE: VITAL SIGNS: Vital signs were stable. PHYSICAL EXAM: GENERAL: Patient lying in bed. Family members at bedside. No acute distress. HEENT: Pupils equal, round, react to light. Extraocular muscles intact. NECK: Supple. No thyromegaly. LUNGS: Clear to auscultation bilaterally. CARDIOVASCULAR: S1, S2 heard. No rubs or gallops. ABDOMEN: Soft, nontender, nondistended. Normal bowel sounds. No rebound or guarding. MUSCULOSKELETAL: No lower extremity edema bilaterally. NEUROLOGIC: No focal deficits. LABORATORY DATA: The comprehensive metabolic panel is normal except the AST is a little high at 138, ALT is 184. Troponin again negative x3. CBC is normal. U tox negative essentially and blood alcohol level is negative. ASSESSMENT AND PLAN: A 66-year-old female with past medical history of anxiety, depression, high cholesterol, hypertension, who presents with chest pain and also suicidal ideations. 1. Chest pain. Again, patient has ruled out for acute coronary syndrome. Continue monitor patient on telemetry for now. A1c is 5.9. 2. Hypertension. Again blood pressure stable. Continue metoprolol. 3. History of depression and anxiety. Again, patient awaiting tele psychiatry evaluation for now. Monitor for any signs of suicidal ideation. Continue Seroquel. 4. High cholesterol. Again followup cholesterol panel and can continue to monitor for now. 5. Deep vein thrombosis prophylaxis. Lovenox. 6. Gastrointestinal prophylaxis. Add Pepcid. Dictated By: Dayday Dunbar MD /luis/magda /Document#: [id number] MTDD
== END 2017-05-10 18:35 | disposition home or self-care (01) ==
LOC: E/R 13:39 → MS4 17:25
PROVIDERS: ADMIT Internal Medicine; ATTEND Internal Medicine
DX: R45.851 Suicidal ideations (principal); R07.9 Chest pain, unspecified; I10 Essential (primary) hypertension; E78.5 Hyperlipidemia, unspecified; F32.9 Major depressive disorder, single episode, unspecified; E78.00 Pure hypercholesterolemia, unspecified; R74.0 Nonspecific elevation of levels of transaminase and lactic acid dehydrogenase [LDH]; Z88.0 Allergy status to penicillin; Z88.2 Allergy status to sulfonamides; Z83.3 Family history of diabetes mellitus
CPT/HCPCS: 36415; 71010; 76705; 80048; 80053; 80306; 80307; 82550; 82553; 83036; 83735; 84484; 85025; 86706; 86803; 87340; 93005; 93306; 96374; 96375; J1650; J2060; J2270; J2405; Z7500; Z7502; Z7610; G0378

== ENCOUNTER 2017-05-13 14:02 | Outpatient (CLI) | payer OTHER ==
[~2017-05-13] VITALS: Ht 149.9 cm; Wt 52.7 kg
[~2017-05-13 14:02] MED LIST changes: +ATOR40TA68 PO; +GABA300C PO; +METO-319 PO; -NAPR-260 PO; +PARO20TA58 PO; -TRAM50TA2 PO; +TYL500 PO
[2017-05-13 14:11] VITALS: Ht 149.9 cm; Wt 52.7 kg
[2017-05-13 14:12] VITALS: BP 129/58; PULSE 58; RESP 16
--- NOTE | 2017-05-13 14:50 | PN ---
Date/Time of Note Date/Time of Note DATE: 05/13/17 TIME: 14:46 Outpatient Progress Note Chief Complaint Chest pain/hypertension/hyperlipidemia/depression HPI Chest pain/patient was recently admitted with chest pain, at present patient does not have any chest pain or shortness of breath palpitation or dizziness, Hypertension/no headache or dizziness, no local focal weakness, no blood in the urine, Hyperlipidemia/no xanthoma, on medication, no side effect, Depression/patient has history of depression, at present no depression, slightly anxious, Review of Systems Const: No Fever, no chills, no Wt. loss, no Fatigue, normal appetite, no diaphoresis. Eyes: No pain, no discharge, no redness, no visual change, no foreign body. ENT: No pain, no bleeding, no congestion, no sore throat, no dysphagia, no discharge or rhinitis. Lymph: No adenopathy, no tender nodes, no lymphedema. Resp: No SOB, no cough, no sputum, no wheezing, no chest pain. CV: No chest pain, no palpitaions, no GARCIAS, no PND, no edema. GI: Normal appetite, no pain, no nausea, no vomiting, no diarrhea, no blood, no constipation. : No frequency, no urgency, no dysuria, no hematuria, no flank pain, no discharge, no bleeding. Musc: no back pain, no neck pain, no knee pain, no restricted ROM. Skin: No rash, no skin lesions, no erythema, no laceration, no bruising, no pruritus. Neuro: No CARTER, no dizziness, no syncope, no seizure, no focal-weakness. Endo: No polyuria, no polydypsia, no dry-skin, no temp-intolerance. Psych: No hallucinations, no depression, exam, slightly anxious,, no suicidal ideation. Ext: No edema, no pain, no ulcer, no weakness. Physical Exam Vital Signs Date Time Temp Pulse Resp B/P Pulse Ox O2 Delivery O2 Flow Rate FiO2 05/13/17 14:12 97.9 58 16 129/58 99 Room Air General Appearance: A 66 year-old female] who appears well-developed, well- nourished, in no acute distress. HEENT: Head normocephalic, atraumatic. Pupils equal, round, reactive to light and accommodate. Sclerae are no jaundice. Nasal turbinates pink without erythema or nasal discharge. Mucous membranes pink and moist without lesions. Oropharynx clear without any exudate or discharge. NECK: Supple. Trachea midline, No thyromegaly, No cervical lymphadenopathy, No mass, No carotid bruits, No JVD, Carotid pulses 2+ bilaterally. PULMONARY: Clear to auscultaion bilaterally, No retractions, Chest expansion symmetric bilaterally, no rales, no ronchi, no dulness on percussion. CARDIAC: Normal SI and S2, Regular rate and rythm, no murmur, gallop, or rub. GASTROINTESTINAL: Abdomen is soft, non-tender, Non Rigid, No distention, Positive bowel sounds x4 quadrants, Liver normal. SKIN: Warm, dry, no rash, no bruise, no echmosis. EXTREMITIES: Bilateral lower extremities no edema, no phlabitus, pulse palpable , no contracture. MUSCULOSKELETAL: Spine Normal, Non-tender, Normal range of motion, No swelling, no deformity, no clubbing, or cyanosis, the patient has no edema to bilateral lower extremities, dorsalis pedis pulses palpable bilaterally. NEUROLOGIC: The patient is awake, alert, oriented, responding to yes/no questions appropriately, moving all extremities, cranial nerve intact, normal strenght, normal power, normal coordination, normal gait. Allergies Coded Allergies: Penicillins (Unverified Allergy, Unknown, 05/09/17) Sulfa (Sulfonamide Antibiotics) (Unverified Allergy, Unknown, 05/09/17) PMH Chest pain/hypertension/hyperlipidemia/depression/elevated LFT Social Hx No smoking no drinking Family Hx Noncontributory Assessment/Plan Impression Chest pain resolved Hypertension Hyperlipidemia Depression History of elevated LFTs Plan Patient education done about her condition and, patient does not have any chest pain at present, if any chest pain go to the ER, Control of blood pressure, control the lipid, Education about diet and exercise, The patient get depressed or suicidal idea to report to primary care physician or go to the ER, and continue the antidepressant medication, Patient to follow with the primary care physician on regular basis, Medications Home Meds Active Scripts Gabapentin* (Neurontin*) 300 Mg Capsule, 300 MG PO QHS, #30 CAP 4 Refills Prov:MARA DÍAZ 05/10/17 Paroxetine Hcl* (Paxil*) 20 Mg Tablet, 20 MG PO HS, #30 TAB 4 Refills Prov:MARA DÍAZMagnolia 05/10/17 Reported Medications Acetaminophen* (Tylenol*) 500 Mg Tab, 1000 MG PO Q6H Y for PAIN AND OR ELEVATED TEMP, TAB 05/09/17 Atorvastatin* (Atorvastatin*) 40 Mg Tablet, 40 MG PO QHS, #30 TAB 05/09/17 Metoprolol Succinate* (Toprol XL*) 50 Mg Tab.er.24h, 50 MG PO DAILY, #30 TAB 05/09/17 Discontinued Scripts Naproxen* (Naprosyn*) 500 Mg Tablet, 500 MG PO BID Y for PAIN AND/OR INFLAMMATION, #30 TAB Prov:ASHKAN HERNÁNDEZ PA-C 12/28/16 Tramadol HCl (Tramadol HCl) 50 Mg Tablet, 50 MG PO Q4 Y for PAIN, #20 TAB Prov:ASHKAN HERNÁNDEZ PA-C 12/28/16 KELY SHELL MD May 13, 2017 14:50
== END 2017-05-13 15:30 | disposition home or self-care (01) ==
LOC: DCC 14:02
PROVIDERS: ATTEND Internal Medicine
DX: R07.9 Chest pain, unspecified (principal); I10 Essential (primary) hypertension; E78.5 Hyperlipidemia, unspecified; F32.9 Major depressive disorder, single episode, unspecified
CPT/HCPCS: G0463

== ENCOUNTER 2017-05-27 11:21 | Outpatient (CLI) | END 2017-05-27 16:17 | disposition home or self-care (01) ==